=== PATIENT | male | born 1980 | race Hispanic/Latino ===

== ENCOUNTER 2019-06-10 20:18 | Emergency (ER) | payer OTHER ==
[2019-06-10 21:03] LABS: APPEARANCE,URINE Clear (CLEAR); BILIRUBIN,URINE Negative (NEGATIVE); COLOR,URINE Yellow (YELLOW); GLUCOSE, URINE (UA) Negative (NEGATIVE); KETONES,URINE Trace mg/dL (NEGATIVE); LEUKOCYTE ESTERASE ,URINE Negative (NEGATIVE); NITRATE,URINE Negative (NEGATIVE); OCCULT BLOOD,URINE Negative (NEGATIVE); PROTEIN,URINE Negative (NEGATIVE)
[2019-06-10] MEDS ORDERED: CEFTRIAXONE SODIUM 500 MG VIAL ONE (21:57)
[2019-06-10] MEDS ORDERED: AZITHROMYCIN 250 MG TABLET PO ONE (21:57)
== END 2019-06-10 22:23 | disposition home or self-care (01) ==
LOC: EDH 20:18
DX: R30.0 Dysuria (principal); Z72.0 Tobacco use
CPT/HCPCS: 81003; 87486; 96372; 87797; 99284; J0696